=== PATIENT | male | born 1940 | race Caucasian/White ===

== ENCOUNTER → 2017-01-11 | Outpatient (CLI) | payer MEDICARE ==
--- NOTE | 2017-01-11 10:41 | CR ---
EXAMINATION: Two-view chest (PA and Lateral views). HISTORY: Bronchitis. Comparison: 02/14/2013. FINDINGS: The trachea is midline. The cardiomediastinal silhouette is within normal limits. No pulmonary infil trates, effusions or pneumothorax. Tiny metallic density projects over the left chest. Osseous structures appear unremarkable. IMPRESSION: No acute cardiopulmonary process.
== END ==
LOC: MW.CHIM 09:41
PROVIDERS: ATTEND Internal Medicine
DX: J20.9 Acute bronchitis, unspecified (principal)
CPT/HCPCS: 36415; 71020; 85025; G0463

== ENCOUNTER 2017-01-26 09:20 | Emergency (ER) | payer MEDICARE ==
[2017-01-26] MEDS ORDERED: Sodium Chloride 0.9% 10 ML Syringe FLUSH PRN (09:25)
[2017-01-26] MEDS ORDERED: Sodium Chloride 0.9% 2.5 ML Syringe FLUSH PRN (09:25)
[2017-01-26] MEDS ORDERED: Nitroglycerin 0.4 MG Tab.SL SL PRN (09:27)
[2017-01-26] MEDS ORDERED: Aspirin 81 MG Tab.Chew PO ONE (09:27)
[2017-01-26 10:09] LABS: CHLORIDE,CL 104 mmol/L (98-110); SODIUM,NA 137 mmol/L (136-146)
--- NOTE | 2017-01-26 10:26 | EDM.PDOC ---
ED HISTORY OF PRESENT ILLNESS - General Chief Complaint: Chest Pain Stated Complaint: CHEST PAIN Time Seen by Provider: 01/26/17 09:23 Source of Information: Reports: Patient History Limitations: Reports: No limitations - History of Present Illness INITIAL COMMENTS - FREE TEXT/NARRATIVE: History of present illness: [] Patient's head 2-3 days of right-sided chest pain. He states that the area of the pain is widening crosses chest. The pain worsens when he moves his arm or takes a deep breath. He denies any trauma. He has had a cough since Thanksgiving has been treated with several courses of antibiotics without relief. Patient denies any syncope, dizziness, sweating, lightheadedness or numbness or tingling. Review of systems: As per history of present illness and below otherwise all systems reviewed and negative. Past medical history: As per history of present illness and as reviewed below otherwise noncontributory. Surgical history: As per history of present illness and as reviewed below otherwise noncontributory. Social history: No reported history of drug or alcohol abuse. Family history: As per history of present illness and as reviewed below otherwise noncontributory. Physical exam: General: Well developed, well nourished in NAD HEENT: Atraumatic, normocephalic, pupils reactive, negative for conjunctival pallor or scleral icterus, mucous membranes moist, throat clear, neck supple, nontender, trachea midline. Lungs: Clear to auscultation, breath sounds equal bilaterally, chest tender to palpation in the right chest that is reproducible to his chest pain he presented with. There is no skin changes. No rhonchi rales or wheezing Heart: S1S2, regular, negative for clicks, rubs, or JVD. Abdomen: Soft, nondistended, nontender. Negative for masses or hepatosplenomegaly. Negative for costovertebral tenderness. Pelvis: Stable nontender. Genitourinary: Deferred. Rectal: Deferred. Extremities: Atraumatic, negative for cords or calf pain. Neurovascular unremarkable. Neuro: Awake, alert, oriented. Cranial nerves II through XII unremarkable. Cerebellum unremarkable. Motor and sensory unremarkable throughout. Exam nonfocal. Diagnostics: [] EKG shows no acute ischemia, chest x-ray is negative, labs are normal including troponin and BNP Therapeutics: [] Patient was given aspirin here Impression: [] Chest wall pain Plan: [] Tylenol for pain continue regular medicines follow up with PMD return if symptoms worsen Definitive disposition and diagnosis as appropriate pending reevaluation and review of above. - Related Data Allergies/ADRs: Allergies Allergy/AdvReac Type Severity Reaction Status Date / Time No Known Allergies Allergy Verified 01/26/17 09:35 Home Meds: Home Meds Bilberry Fruit Extract [Bilberry] 0 mg PO DAILY 10/31/14 [History] Insulin Lispro [HumaLOG] 0 10/31/14 [History] Multivitamin [Multivitamins] 1 tab PO DAILY 10/31/14 [History] Gluc 2KCl/Chondr/Monica Hy/Hy Ac [Glucosamine & Chondroitin Cap] 1 each PO DAILY 02/03/16 [History] Past Medical History HEENT History: Reports: Impaired vision, Macular degeneration Cardiovascular History: Reports: SOB on exertion Respiratory History: Reports: Asthma, COPD, SOB Gastrointestinal History: Reports: None Endocrine/Metabolic History: Reports: Diabetes, type II - Infectious Disease History Infectious Disease History: Reports: Chicken pox, Measles, Mumps - Past Surgical History HEENT Surgical History: Reports: Tonsillectomy Respiratory Surgical History: Reports: None GI Surgical History: Reports: Hernia repair/other Social & Family History - Family History Family Medical History: Unobtainable - Tobacco Use Smoking Status *Q: Never Smoker Second Hand Smoke Exposure: No - Caffeine Use Caffeine Use: Reports: Soda Caffeine Use Comment: 3-4 pops/day - Alcohol Use Days Per Week of Alcohol Use: 0 - Recreational Drug Use Recreational Drug Use: No ED ROS GENERAL - Review of Systems Review Of Systems: See Below (See history of present illness) ED EXAM, GENERAL - Physical Exam Exam: See Below (See history of present illness) Course - Vital Signs Last Recorded V/S: Last Vital Signs Temp 36.8 C 01/26/17 09:37 Pulse 64 01/26/17 09:37 Resp 18 01/26/17 09:37 BP 129/85 01/26/17 09:37 Pulse Ox 95 01/26/17 09:37 - Orders/Labs/Meds Orders: Active Orders 24 hr Category Date Time Status Chest 1V Frontal [CR] Stat Exams 01/26/17 09:25 Taken Sodium Chloride 0.9% [Saline Flush] Med 01/26/17 09:25 Active 10 ml FLUSH ASDIRECTED PRN Sodium Chloride 0.9% [Saline Flush] Med 01/26/17 09:25 Active 2.5 ml FLUSH ASDIRECTED PRN Peripheral IV Insertion Adult [OM.PC] Stat Oth 01/26/17 09:26 Ordered Medication Orders Sodium Chloride (Saline Flush) 10 ml FLUSH ASDIRECTED PRN PRN Reason: Keep Vein Open Sodium Chloride (Saline Flush) 2.5 ml FLUSH ASDIRECTED PRN PRN Reason: Keep Vein Open Labs: Laboratory Tests 01/26/17 01/26/17 01/26/17 Range/Units 09:41 09:41 09:41 WBC 5.36 (4.0-11.0) K/uL RBC 4.57 (4.50-5.90) M/uL Hgb 14.3 (13.0-17.0) g/dL Hct 42.8 (38.0-50.0) % MCV 93.7 (80.0-98.0) fL MCH 31.3 (27.0-32.0) pg MCHC 33.4 (31.0-37.0) g/dL RDW Std Deviation 44.0 (28.0-62.0) fl RDW Coeff of Isaac 13 (11.0-15.0) % Plt Count 160 (150-400) K/uL MPV 10.40 (7.40-12.00) fL Neut % (Auto) 64.5 (48.0-80.0) % Lymph % (Auto) 23.1 (16.0-40.0) % [place] % (Auto) 10.3 (0.0-15.0) % Eos % (Auto) 1.9 (0.0-7.0) % Baso % (Auto) 0.2 (0.0-1.5) % Neut # 3.5 (1.4-5.7) K/uL Lymph # 1.2 (0.6-2.4) K/uL [place] # 0.6 (0.0-0.8) K/uL Eos # 0.1 (0.0-0.7) K/uL Baso # 0.0 (0.0-0.1) K/uL Nucleated RBC % 0.0 /100WBC Nucleated RBCs # 0 K/uL Sodium 137 (136-146) mmol/L Potassium 4.7 (3.5-5.1) mmol/L Chloride 104 (98-110) mmol/L Carbon Dioxide 25 (21-31) mmol/L BUN 19 (6.0-23.0) mg/dL Creatinine 1.2 (0.6-1.5) mg/dL Est Cr Clr Drug Dosing TNP Estimated GFR (MDRD) 59.2 ml/min Glucose 258 H (60-110) mg/dL Calcium 9.2 (8.8-10.8) mg/dL Total Bilirubin 0.9 (0.1-1.5) mg/dL AST 19 (5-40) IU/L ALT 19 (8-54) IU/L Alkaline Phosphatase 95 (40-150) Troponin I < 0.10 (0.0-0.29) NG/ML B-Natriuretic Peptide (<100) PG/ML Total Protein 6.9 (6.0-8.0) g/dL Albumin 3.8 (3.4-4.8) g/dL Globulin 3.1 (2.0-3.5) g/dL Albumin/Globulin Ratio 1.2 L (1.3-2.8) 01/26/17 Range/Units 09:41 WBC (4.0-11.0) K/uL RBC (4.50-5.90) M/uL Hgb (13.0-17.0) g/dL Hct (38.0-50.0) % MCV (80.0-98.0) fL MCH (27.0-32.0) pg MCHC (31.0-37.0) g/dL RDW Std Deviation (28.0-62.0) fl RDW Coeff of Isaac (11.0-15.0) % Plt Count (150-400) K/uL MPV (7.40-12.00) fL Neut % (Auto) (48.0-80.0) % Lymph % (Auto) (16.0-40.0) % [place] % (Auto) (0.0-15.0) % Eos % (Auto) (0.0-7.0) % Baso % (Auto) (0.0-1.5) % Neut # (1.4-5.7) K/uL Lymph # (0.6-2.4) K/uL [place] # (0.0-0.8) K/uL Eos # (0.0-0.7) K/uL Baso # (0.0-0.1) K/uL Nucleated RBC % /100WBC Nucleated RBCs # K/uL Sodium (136-146) mmol/L Potassium (3.5-5.1) mmol/L Chloride (98-110) mmol/L Carbon Dioxide (21-31) mmol/L BUN (6.0-23.0) mg/dL Creatinine (0.6-1.5) mg/dL Est Cr Clr Drug Dosing Estimated GFR (MDRD) ml/min Glucose (60-110) mg/dL Calcium (8.8-10.8) mg/dL Total Bilirubin (0.1-1.5) mg/dL AST (5-40) IU/L ALT (8-54) IU/L Alkaline Phosphatase (40-150) Troponin I (0.0-0.29) NG/ML B-Natriuretic Peptide 83 (<100) PG/ML Total Protein (6.0-8.0) g/dL Albumin (3.4-4.8) g/dL Globulin (2.0-3.5) g/dL Albumin/Globulin Ratio (1.3-2.8) Meds: Medications Generic Name Dose Route Start Last Admin Trade Name Freq PRN Reason Stop Dose Admin Sodium Chloride 10 ml 01/26/17 09:25 Saline Flush FLUSH ASDIRECTED PRN Keep Vein Open Sodium Chloride 2.5 ml 01/26/17 09:25 Saline Flush FLUSH ASDIRECTED PRN Keep Vein Open Discontinued Medications Generic Name Dose Route Start Last Admin Trade Name Freq PRN Reason Stop Dose Admin Aspirin 324 mg 01/26/17 09:27 01/26/17 09:37 Aspirin PO 01/26/17 09:28 324 mg ONETIME ONE Administration Departure - Departure Time of Disposition: 10:21 Disposition: Home, Self-Care 01 Condition: good Clinical Impression: Chest wall pain Forms: ED Department Discharge Additional Instructions: The following information is given to patients seen in the emergency department who are being discharged to home. This information is to outline your options for follow-up care. We provide all patients seen in our emergency department with a follow-up referral. The need for follow-up, as well as the timing and circumstances, are variable depending upon the specifics of your emergency department visit. If you don't have a primary care physician on staff, we will provide you with a referral. We always advise you to contact your personal physician following an emergency department visit to inform them of the circumstance of the visit and for follow-up with them and/or the need for any referrals to a consulting specialist. The emergency department will also refer you to a specialist when appropriate. This referral assures that you have the opportunity for follow-up care with a specialist. All of these measure are taken in an effort to provide you with optimal care, which includes your follow-up. Under all circumstances we always encourage you to contact your private physician who remains a resource for coordinating your care. When calling for follow-up care, please make the office aware that this follow-up is from your recent emergency room visit. If for any reason you are refused follow-up, please contact the [facility] at and asked to speak to the emergency department charge nurse. [facility] [address] [place] [address] - My Orders Last 24 Hours: My Active Orders 01/26/17 09:25 Chest 1V Frontal [CR] Stat Sodium Chloride 0.9% [Saline Flush] 10 ml FLUSH ASDIRECTED PRN Sodium Chloride 0.9% [Saline Flush] 2.5 ml FLUSH ASDIRECTED PRN 01/26/17 09:26 Peripheral IV Insertion Adult [OM.PC] Stat - Assessment/Plan Last 24 Hours: My Active Orders 01/26/17 09:25 Chest 1V Frontal [CR] Stat Sodium Chloride 0.9% [Saline Flush] 10 ml FLUSH ASDIRECTED PRN Sodium Chloride 0.9% [Saline Flush] 2.5 ml FLUSH ASDIRECTED PRN 01/26/17 09:26 Peripheral IV Insertion Adult [OM.PC] Stat
[2017-01-26 10:53] VITALS: BP 121/79
--- NOTE | 2017-01-28 20:06 | CR ---
EXAM DATE: 01/26/17 PATIENT'S AGE: 76 Patient: INDIAR THOMAS Facility: [place], [place] Site . Site : [id number] Study: XRay Chest [id number]/11/2017 9:41:05 AM Ordering Physician: Nasir Lorenzana Final Report: INDICATION: Chest pain and shortness of breath. TECHNIQUE: Chest 1 views. COMPARISON: 01/11/2017. FINDINGS: Cardiovascular and mediastinum: Heart size and vasculature are normal in caliber and appearance. Mediastinum is within normal limits. Lungs and pleural spaces: Lungs are clear. No sign of infiltrate or mass. No sign of pleural effusion. No pneumothorax. Bones and soft tissues: No significant findings. IMPRESSION: No acute findings and no significant changes from the prior exam. Dictated by Mane Mendoza MD @ 01/26/2017 10:00:48 AM Dictated by: Mane Mendoza MD @ 01/26/2017 10:00:51 (Electronic Signature) Report Signed by Proxy and Original Signed Document filed in the Medical Record. [facility]
== END 2017-01-26 10:51 | disposition home or self-care (01) ==
LOC: MW.ED 09:20
DX: R07.89 Other chest pain (principal); J45.909 Unspecified asthma, uncomplicated; J44.9 Chronic obstructive pulmonary disease, unspecified; E11.9 Type 2 diabetes mellitus without complications; Z79.4 Long term (current) use of insulin; Z79.899 Other long term (current) drug therapy; Z98.890 Other specified postprocedural states
CPT/HCPCS: 36415; 71010; 80053; 83880; 84484; 85025; 93005; 99284; A9270

== ENCOUNTER 2017-02-02 12:08 | Emergency (ER) | payer MEDICARE ==
[2017-02-02 12:17] VITALS: BP 137/76
[2017-02-02] MEDS ORDERED: Lidocaine 1% 20 ML MDV INJECT ONE (12:18)
[2017-02-02] MEDS ORDERED: Bacitracin Oint 1 GM U/D Packet TOP ONE (12:18)
--- NOTE | 2017-02-02 12:48 | EDM.PDOC ---
Addendum entered and electronically signed by Aleksandra Stanford NP 03/05/17 12: 56: After adequate skin decontamination with chlorhexidine scrub and anesthesia with a digital block the distal nail which was loose was sutured to the distal tip with one 4-0 suture. The nail was trephinated with cautery. Original Note: ED HPI Skin/Rash - General Chief Complaint: Laceration Stated Complaint: CUT THUMB Time Seen by Provider: 02/02/17 12:10 Source: Reports: Patient History Limitations: Reports: No limitations - History of Present Illness INITIAL COMMENTS - FREE TEXT/NARRATIVE: Presents reporting that he was working with a skill saw and a piece of both her came back and hit his right thumb. Now he has a laceration and part of the nail chipped off. - Related Data Allergies Allergy/AdvReac Type Severity Reaction Status Date / Time Latex, Natural Rubber Allergy Other Verified 02/02/17 12:25 Home Meds: Ambulatory Orders Medication Instructions Recorded Confirmed Bilberry Fruit Extract [Bilberry] 0 mg PO DAILY 10/31/14 09/08/16 Insulin Lispro [HumaLOG] 0 10/31/14 05/31/15 Multivitamin [Multivitamins] 1 tab PO DAILY 10/31/14 09/08/16 Gluc 2KCl/Chondr/Monica Hy/Hy Ac 1 each PO DAILY 02/03/16 [Glucosamine & Chondroitin Cap] Past Medical History HEENT History: Reports: Impaired vision, Macular degeneration Cardiovascular History: Reports: SOB on exertion Respiratory History: Reports: Asthma, COPD, SOB Gastrointestinal History: Reports: None Genitourinary History: Reports: None Musculoskeletal History: Reports: None Neurological History: Reports: None Psychiatric History: Reports: None Endocrine/Metabolic History: Reports: Diabetes, type II Hematologic History: Reports: None Immunologic History: Reports: None Other Oncologic History: skin ca Dermatologic History: Reports: None - Infectious Disease History Infectious Disease History: Reports: None - Past Surgical History HEENT Surgical History: Reports: Tonsillectomy Respiratory Surgical History: Reports: None GI Surgical History: Reports: Hernia repair/other Social & Family History - Family History Family Medical History: Unobtainable - Tobacco Use Smoking Status *Q: Never Smoker Second Hand Smoke Exposure: No - Caffeine Use Caffeine Use: Reports: Soda Caffeine Use Comment: 3-4 pops/day - Alcohol Use Days Per Week of Alcohol Use: 0 - Recreational Drug Use Recreational Drug Use: No ED ROS GENERAL - Review of Systems Review Of Systems: ROS reveals no pertinent complaints other than HPI. ED EXAM, SKIN/RASH Exam: See Below Exam Limited By: No limitations General Appearance: alert, no apparent distress Ears: normal external exam Nose: normal inspection Throat/Mouth: Normal inspection Head: atraumatic, normocephalic Neck: normal inspection Respiratory/Chest: no respiratory distress Cardiovascular: normal peripheral pulses GI/Abdominal: soft Extremities: other (Left thumb one and one half centimeter laceration from the nailbed obliquely to the lateral without disturbance of the nailbed. CMS intact distally. Chip off the distal nail medially.) Neurological: alert, oriented Psychiatric: normal affect, normal mood Skin: Warm, Dry, Intact, Normal color, No rash Lymphatic: no adenopathy Course - Vital Signs Last Recorded V/S: Last Vital Signs Temp 36.4 C 02/02/17 12:15 Pulse 66 02/02/17 12:15 Resp 16 02/02/17 12:15 BP 137/76 02/02/17 12:15 Pulse Ox 97 02/02/17 12:15 - Orders/Labs/Meds Meds: Medications Discontinued Medications Generic Name Dose Route Start Last Admin Trade Name Freq PRN Reason Stop Dose Admin Bacitracin 1 dose 02/02/17 12:18 Bacitracin Oint 1 Gm TOP 02/02/17 12:19 ONETIME ONE Lidocaine HCl 20 ml 02/02/17 12:18 Xylocaine 1% INJECT 02/02/17 12:19 ONETIME ONE Departure - Departure Time of Disposition: 12:48 Disposition: Home, Self-Care 01 Condition: good Clinical Impression: Laceration Forms: ED Department Discharge Additional Instructions: 1. Keep laceration clean and dry. 2. Apply anti-bacterial ointment twice daily for next three days 3. Keep covered while working 4. Watch for signs of infection: redness, swelling, purulent drainage 5. Suture removal 7-10 days here, urgent care or your doctor's office
== END 2017-02-02 13:00 | disposition home or self-care (01) ==
LOC: MW.ED 12:08
DX: S61.112A Laceration without foreign body of left thumb with damage to nail, initial encounter (principal); E11.9 Type 2 diabetes mellitus without complications; Z79.4 Long term (current) use of insulin; Z79.899 Other long term (current) drug therapy; Z98.890 Other specified postprocedural states; Z91.040 Latex allergy status; W45.8XXA Other foreign body or object entering through skin, initial encounter
CPT/HCPCS: 11760; 99282

== ENCOUNTER 2017-02-10 08:53 | Emergency (ER) | payer MEDICARE ==
[2017-02-10 08:59] VITALS: BP 140/70
== END 2017-02-10 09:05 | disposition home or self-care (01) ==
LOC: MW.ED 08:53
DX: S61.012D Laceration without foreign body of left thumb without damage to nail, subsequent encounter (principal); X58.XXXD Exposure to other specified factors, subsequent encounter

== ENCOUNTER → 2017-02-18 | Outpatient (CLI) | payer MEDICARE | LOC: MW.CHIM 07:37 | PROVIDERS: ATTEND Internal Medicine | DX: E11.65 Type 2 diabetes mellitus with hyperglycemia (principal) | CPT/HCPCS: 36415; 83036 ==

== ENCOUNTER → 2017-02-19 | Outpatient (CLI) | payer MEDICARE | LOC: MW.CHIM 10:00 | PROVIDERS: ATTEND Internal Medicine | DX: Z09 Encounter for follow-up examination after completed treatment for conditions other than malignant neoplasm (principal) | CPT/HCPCS: G0463 ==

== ENCOUNTER → 2017-03-07 | Outpatient (CLI) | payer MEDICARE | LOC: MW.CHIM 08:00 | PROVIDERS: ATTEND Internal Medicine | DX: NODX10 (principal) ==

== ENCOUNTER → 2017-03-08 | Outpatient (CLI) | payer MEDICARE | LOC: MW.CHFP 08:00 | PROVIDERS: ATTEND Emergency Medicine | DX: NODX10 (principal) ==

== ENCOUNTER → 2017-03-11 | Outpatient (CLI) | payer MEDICARE | LOC: MW.CHFP 08:00 | PROVIDERS: ATTEND Emergency Medicine | DX: NODX10 (principal) ==

== ENCOUNTER → 2017-03-15 | Outpatient (CLI) | payer MEDICARE | LOC: MW.CHPOD 08:00 | PROVIDERS: ATTEND Podiatrist Foot & Ankle Surgery | DX: M79.673 Pain in unspecified foot (principal); E11.65 Type 2 diabetes mellitus with hyperglycemia; R26.9 Unspecified abnormalities of gait and mobility; M21.969 Unspecified acquired deformity of unspecified lower leg | CPT/HCPCS: 99204 ==

== ENCOUNTER → 2017-03-18 | Outpatient (CLI) | payer MEDICARE | LOC: MW.CHIM 08:00 | PROVIDERS: ATTEND Internal Medicine | DX: NODX10 (principal) ==

== ENCOUNTER → 2017-04-08 | Outpatient (CLI) | payer MEDICARE | LOC: MW.CHFP 08:00 | PROVIDERS: ATTEND Emergency Medicine | DX: NODX10 (principal) ==

== ENCOUNTER → 2017-04-12 | Outpatient (CLI) | payer MEDICARE | LOC: MW.CHPOD 08:00 | PROVIDERS: ATTEND Podiatrist Foot & Ankle Surgery | DX: R26.9 Unspecified abnormalities of gait and mobility (principal); M21.969 Unspecified acquired deformity of unspecified lower leg; M21.40 Flat foot [pes planus] (acquired), unspecified foot; E11.65 Type 2 diabetes mellitus with hyperglycemia | CPT/HCPCS: G0463 ==

== ENCOUNTER 2017-06-14 07:34 | Emergency (ER) | payer MEDICARE ==
[2017-06-14] MEDS ORDERED: Lidocaine 1% 20 ML MDV INJECT ONE (07:55)
[2017-06-14] MEDS ORDERED: Diphtheria,Pertussis(Acell),Tetanus Vaccine 0.5 ML Syringe IM ONE (08:01)
[2017-06-14] MEDS ORDERED: Bacitracin Oint 1 GM U/D Packet TOP ONE (08:02)
--- NOTE | 2017-06-14 08:23 | EDM.PDOC ---
ED HPI GENERAL MEDICAL PROBLEM - General Chief Complaint: Laceration Stated Complaint: CUT LEFT FINGER Time Seen by Provider: 06/14/17 08:11 Source of Information: Reports: Patient History Limitations: Reports: No Limitations - History of Present Illness INITIAL COMMENTS - FREE TEXT/NARRATIVE: HISTORY AND PHYSICAL: History of present illness: Review of systems: As per history of present illness and below otherwise all systems reviewed and negative. Past medical history: As per history of present illness and as reviewed below otherwise noncontributory. Surgical history: As per history of present illness and as reviewed below otherwise noncontributory. Social history: No reported history of drug or alcohol abuse. Family history: As per history of present illness and as reviewed below otherwise noncontributory. Physical exam: HEENT: Normocephalic, atraumatic, pupils normal and symmetrical, supple neck, no meningismus, normal color Lungs: Normal and symmetrical chest wall excursion bilateral with no tachypnea or increased work of breathing, grossly normal chest exam Heart: No tachycardia in triage Abdomen: Normal-appearing, nondistended, no visible mass or asymmetry Pelvis: Normal-appearing Genitourinary: Deferred Rectal exam: Deferred Extremities: 2.75 cm avulsion tip of left long finger palmar aspect without significant nail involvement on the dorsum. Avulsion is 1/8 inch wide that is the width of the saw blade. Margins devitalized with hanging skin. No bony involvement. Normal painless range of motion of the finger with normal strength in flexion and extension. Neurovascularly intact distally with good cap refill. normal use and range of motion, no visible evidence of gross neurovascular compromise Neuro: Awake, alert, oriented. Normal and appropriate mental status. Cranial nerves grossly unremarkable. Motor function normal. Nonfocal neurologic exam. Diagnostics: [] Therapeutics: [Tetanus given] Impression: [Avulsion left long finger] Plan: [Procedure debridement of wound by DOMINIC Breen Patient sitting. Suture removal scissors used to trim devitalized margins of wound. Patient tolerated well. No complications. Wound then irrigated extensively with a volume tap water irrigation prior to dressing application] Definitive disposition and diagnosis as appropriate pending reevaluation and review of above. left middle finger Pain Score (Numeric/FACES): 3 - Related Data Allergies Allergy/AdvReac Type Severity Reaction Status Date / Time Latex, Natural Rubber Allergy Other Verified 06/14/17 07:49 Home Meds: Home Meds Bilberry Fruit Extract [Bilberry] 0 mg PO DAILY 10/31/14 [History] Insulin Lispro [HumaLOG] 1 injection SQ ASDIRECTED 10/31/14 [History] Multivitamin [Multivitamins] 1 tab PO DAILY 10/31/14 [History] Gluc 2KCl/Chondr/Monica Hy/Hy Ac [Glucosamine & Chondroitin Cap] 1 each PO DAILY 02/03/16 [History] Past Medical History HEENT History: Reports: Impaired Vision, Macular Degeneration Cardiovascular History: Reports: SOB on Exertion Respiratory History: Reports: Asthma, COPD, SOB Gastrointestinal History: Reports: None Genitourinary History: Reports: None Musculoskeletal History: Reports: None Neurological History: Reports: None Psychiatric History: Reports: None Endocrine/Metabolic History: Reports: Diabetes, Type II Hematologic History: Reports: None Immunologic History: Reports: None Other Oncologic History: skin ca Dermatologic History: Reports: None - Infectious Disease History Infectious Disease History: Reports: None - Past Surgical History Respiratory Surgical History: Reports: None GI Surgical History: Reports: Hernia Repair/Other Social & Family History - Family History Family Medical History: Noncontributory - Tobacco Use Smoking Status *Q: Never Smoker Second Hand Smoke Exposure: No - Caffeine Use Caffeine Use: Reports: Soda Caffeine Use Comment: 3-4 pops/day - Alcohol Use Days Per Week of Alcohol Use: 0 - Recreational Drug Use Recreational Drug Use: No ED ROS GENERAL - Review of Systems Review Of Systems: See Below (History of present illness) ED EXAM, SKIN/RASH Exam: See Below (History of present illness) Course - Vital Signs Last Recorded V/S: Last Vital Signs Temp 36.1 C 06/14/17 07:50 Pulse 65 06/14/17 07:50 Resp 16 06/14/17 07:50 BP 128/72 06/14/17 07:50 Pulse Ox 95 06/14/17 07:50 - Orders/Labs/Meds Orders: Active Orders 24 hr Category Date Time Status Vaccines to be Administered [RC] PER UNIT ROUTINE Care 06/14/17 08:01 Active Meds: Medications Discontinued Medications Generic Name Dose Route Start Last Admin Trade Name Freq PRN Reason Stop Dose Admin Bacitracin 1 dose 06/14/17 08:02 06/14/17 08:22 Bacitracin Oint 1 Gm TOP 06/14/17 08:03 1 dose ONETIME ONE Administration Diphtheria/Tetanus/Acell Pertussis 0.5 ml 06/14/17 08:01 06/14/17 08:15 Adacel IM 06/14/17 08:02 0.5 ml .ONCE ONE Administration Lidocaine HCl 20 ml 06/14/17 07:55 Xylocaine 1% INJECT 06/14/17 07:56 ONETIME ONE Departure - Departure Time of Disposition: 08:24 Disposition: Home, Self-Care 01 Condition: Good Clinical Impression: Avulsion of skin of finger, Tetanus-diphtheria vaccination administered at current visit - Discharge Information Instructions: Laceration Care, Adult, [id number] Referrals: Kermit Whipple MD [Primary Care Provider] - Forms: ED Department Discharge Additional Instructions: You have suffered an avulsion today. This means that some of your tissue is missing from the saw blade wound. It does not require suture repair and will heal by itself. We've had you irrigate your wound extensively to wash out any dirt. Keep dressing in place with antibiotic ointment and wear cage splint to protect her finger temp from bumping against something as this might be quite painful. Take 800 mg of Motrin every 6 hours and Tylenol every 4 hours as needed for pain. If you find that your fingertip is throbbing it may be helpful to elevated above your heart and apply an ice pack. Follow-up with your doctor in 2 days for wound check and return immediately for signs of infection or other concerns. Her tetanus has been updated today and this includes pertussis or whooping cough coverage. - My Orders Last 24 Hours: My Active Orders 06/14/17 08:01 Vaccines to be Administered [RC] PER UNIT ROUTINE - Assessment/Plan Last 24 Hours: My Active Orders 06/14/17 08:01 Vaccines to be Administered [RC] PER UNIT ROUTINE
[2017-06-14 08:43] VITALS: BP 130/73
== END 2017-06-14 08:40 | disposition home or self-care (01) ==
LOC: MW.ED 07:34
DX: S61.203A Unspecified open wound of left middle finger without damage to nail, initial encounter (principal); Z23 Encounter for immunization; J45.909 Unspecified asthma, uncomplicated; J44.9 Chronic obstructive pulmonary disease, unspecified; E11.9 Type 2 diabetes mellitus without complications; Z85.828 Personal history of other malignant neoplasm of skin; Z79.4 Long term (current) use of insulin; Z79.899 Other long term (current) drug therapy; Z91.040 Latex allergy status; W29.8XXA Contact with other powered hand tools and household machinery, initial encounter
CPT/HCPCS: 90471; 90715; 99283; 99283-25

== ENCOUNTER 2018-02-08 20:56 | Emergency (ER) | payer MEDICARE ==
--- NOTE | 2018-02-08 21:04 | EDM.PDOC ---
ED HPI GENERAL MEDICAL PROBLEM - General Stated Complaint: LOWER BACK PAIN Time Seen by Provider: 02/08/18 21:04 Source of Information: Reports: Patient History Limitations: Reports: No Limitations - History of Present Illness INITIAL COMMENTS - FREE TEXT/NARRATIVE: HISTORY AND PHYSICAL: []77-year-old gentleman presenting with mid back pain History of Present Illness: []Patient was snowblowing the snow off his driveway . He slipped on the ice landed in a position mid back striking the cement Review of Systems: As per history of present illness and below otherwise all systems reviewed and negative. Past medical history: As per history of present illness and as reviewed below otherwise noncontributory. Surgical history: As per history of present illness and as reviewed below otherwise noncontributory. Social history: No reported history of drug or alcohol abuse. Family history: As per history of present illness and as reviewed below otherwise noncontributory. Physical exam: Certain oriented male denies any loss of consciousness denies hitting his head area of pain is his mid back. He is answering questions in full sentences without any shortness of breath. Skin is warm and dry. HEENT: Atraumatic, normocehpalic, pupils reactive, negative for conjunctival pallor or scleral icterus, mucous membranes moist, throat clear, neck supple, nontender, trachea midline. PERRLA. Lungs: Clear to auscultation, breath sounds equal bilaterally, chest non tender. Heart: S1S2, regular, negative for clicks, rubs, or JVD. Abdomen: Soft, nondistended, nontender. Negative for masses or hepatossplenmegaly. Negative for costovertebral tenderness. Pelvis: Stable nontender. Genitourinary: Deferred. Rectal: Deferred Extremities: Atraumatic, negative for cords or calf pain. Neurovascular unremarkable. Neuro: Awake, alert, oriented. Cranial nerves II through XII unremarkable. Cerebellum unremarkable. Motor and sensory unremarkable throughout. Exam nonfocal. His chest with the patient that no dislocations or fractures were noted on x-ray He does relate improvement after the Toradol Diagnostics: []Thoracic spine x-ray Therapeutics: []Toradol IM Norflex are IM Impression: []Mid back injury Plan: []Discharged to home Follow up with your primary care next week Return to the emergency room as needed as discussed Definitive disposition and diagnosis as appropriate pending reevaluation and review of above. Onset: Today, Sudden Duration: Hour(s):, Getting Worse Location: Reports: Back Quality: Reports: Throbbing Severity: Moderate Improves with: Reports: None Worsens with: Reports: None Associated Symptoms: Reports: No Other Symptoms lower back Pain Score (Numeric/FACES): 6 - Related Data Allergies Allergy/AdvReac Type Severity Reaction Status Date / Time Latex, Natural Rubber Allergy Other Verified 02/08/18 21:09 cory Allergy Blisters Uncoded 02/08/18 21:10 Home Meds: Home Meds Bilberry Fruit Extract [Bilberry] 0 mg PO DAILY 10/31/14 [History] Insulin Lispro [HumaLOG] 1 injection SQ ASDIRECTED 10/31/14 [History] Multivitamin [Multivitamins] 1 tab PO DAILY 10/31/14 [History] Gluc 2KCl/Chondr/Monica Hy/Hy Ac [Glucosamine & Chondroitin Cap] 1 each PO DAILY 02/03/16 [History] Past Medical History HEENT History: Reports: Impaired Vision, Macular Degeneration Cardiovascular History: Reports: SOB on Exertion Respiratory History: Reports: Asthma, COPD, SOB Gastrointestinal History: Reports: None Genitourinary History: Reports: None Musculoskeletal History: Reports: None Neurological History: Reports: None Psychiatric History: Reports: None Endocrine/Metabolic History: Reports: Diabetes, Type II Hematologic History: Reports: None Immunologic History: Reports: None Other Oncologic History: skin ca Dermatologic History: Reports: None - Infectious Disease History Infectious Disease History: Reports: None - Past Surgical History Respiratory Surgical History: Reports: None GI Surgical History: Reports: Hernia Repair/Other Social & Family History - Family History Family Medical History: Noncontributory - Tobacco Use Smoking Status *Q: Never Smoker Second Hand Smoke Exposure: No - Caffeine Use Caffeine Use: Reports: Soda Caffeine Use Comment: 3-4 pops/day - Alcohol Use Days Per Week of Alcohol Use: 0 - Recreational Drug Use Recreational Drug Use: No ED ROS GENERAL - Review of Systems Review Of Systems: ROS reveals no pertinent complaints other than HPI. ED EXAM, GENERAL - Physical Exam Exam: See Below (see dictation) Course - Vital Signs Last Recorded V/S: Last Vital Signs Temp 36.4 C 02/08/18 21:05 Pulse 75 02/08/18 21:05 Resp 22 H 02/08/18 21:05 BP 145/78 H 02/08/18 21:05 Pulse Ox 97 02/08/18 21:05 - Orders/Labs/Meds Orders: Active Orders 24 hr Category Date Time Status Thoracic Spine 3V [CR] Stat Exams 02/08/18 21:10 Taken Meds: Medications Discontinued Medications Generic Name Dose Route Start Last Admin Trade Name Sarah PRN Reason Stop Dose Admin Ketorolac Tromethamine 60 mg 02/08/18 21:10 02/08/18 21:20 Toradol IM 02/08/18 21:11 60 mg ONETIME ONE Administration Orphenadrine Citrate 60 mg 02/08/18 21:17 02/08/18 21:22 Norflex IM 02/08/18 21:18 60 mg ONETIME ONE Administration Departure - Departure Time of Disposition: 21:53 Disposition: Home, Self-Care 01 Condition: Good Clinical Impression: Contusion Qualifiers: Encounter type: initial encounter Contusion area: lower back Qualified Code(s) : S30.0XXA - Contusion of lower back and pelvis, initial encounter - Discharge Information Instructions: Contusion, Ufvq-[id number], Back Pain, Adult, [id number] Referrals: Kermit Whipple MD [Primary Care Provider] - Additional Instructions: The following information is given to patients seen in the emergency department who are being discharged to home. This information is to outline your options for follow-up care. We provide all patients seen in our emergency department with a follow-up referral. The need for follow-up, as well as the timing and circumstances, are variable depending upon the specifics of your emergency department visit. If you don't have a primary care physician on staff, we will provide you with a referral. We always advise you to contact your personal physician following an emergency department visit to inform them of the circumstance of the visit and for follow-up with them and/or the need for any referrals to a consulting specialist. The emergency department will also refer you to a specialist when appropriate. This referral assures that you have the opportunity for followup care with a specialist. All of these measure are taken in an effort to provide you with optimal care, which includes your followup. Under all circumstances we always encourage you to contact your private physician who remains a resource for coordinating your care. When calling for followup care, please make the office aware that this follow-up is from your recent emergency room visit. If for any reason you are refused follow-up, please contact the [facility] emergency department at and asked to speak to the emergency department charge nurse. Here found to have a injury to your back/contusion from your fall Prescription has been written for you for Flexeril [id number] ibuprofen as directed and discussed Return to the emergency room as needed as discussed Follow-up with your primary care in 3 days - My Orders Last 24 Hours: My Active Orders 02/08/18 21:10 Thoracic Spine 3V [CR] Stat - Assessment/Plan Last 24 Hours: My Active Orders 02/08/18 21:10 Thoracic Spine 3V [CR] Stat
[2018-02-08] MEDS ORDERED: Ketorolac 60 MG/2 ML SDV IM ONE (21:10)
[2018-02-09 00:24] VITALS: BP 155/71
--- NOTE | 2018-02-10 15:30 | CR ---
EXAM DATE: 02/08/18 PATIENT'S AGE: 77 Patient: INDIRA THOMAS Facility: [place], [place] Site . Site : [id number] Study: XRay Spine Thoracic [id number]/24/2018 9:41:23 PM Ordering Physician: Doctor Rice Final Report: Fell and back after slipping on ice. Thoracic spine x-ray FINDINGS: Mild levoconvex curvature of the thoracic spine. Normal height and alignment of the thoracic vertebral bodies. Minimal degenerative change of the thoracic spine. No acute fracture visualized. Dictated by Jessica Varela MD @ Feb 08 2018 10:21PM (Electronic Signature) Report Signed by Proxy. ERNESTO
== END 2018-02-08 22:14 | disposition home or self-care (01) ==
LOC: MW.ED 20:56
DX: S30.0XXA Contusion of lower back and pelvis, initial encounter (principal); E11.9 Type 2 diabetes mellitus without complications; Z79.4 Long term (current) use of insulin; Z91.040 Latex allergy status; Z91.09 Other allergy status, other than to drugs and biological substances; W00.0XXA Fall on same level due to ice and snow, initial encounter
CPT/HCPCS: 72072; 96372; 99283; J1885; J2360

== ENCOUNTER 2019-05-04 06:29 | Emergency (ER) | payer MEDICARE ==
--- NOTE | 2019-05-04 06:48 | EDM.PDOC ---
<Abelardo Weaver - Last Filed: 05/04/19 06:45> ED HPI GENERAL MEDICAL PROBLEM - General Chief Complaint: Lower Extremity Injury/Pain Stated Complaint: LEFT FOOT PAIN Time Seen by Provider: 05/04/19 06:45 Source of Information: Reports: Patient - History of Present Illness INITIAL COMMENTS - FREE TEXT/NARRATIVE: HISTORY AND PHYSICAL: History of present illness: [Patient presents with left foot pain since Saturday 5 out of 10 unable to bear weight since most outer fell on his foot no radiation does have some swelling slight redness pain with movement/articulation of his ankle joint no fever nausea vomiting chills sweats He was seen Saturday through [facility] with a negative x-ray and also seen by podiatry ] Review of systems: As per history of present illness and below otherwise all systems reviewed and negative. Past medical history: As per history of present illness and as reviewed below otherwise noncontributory. Surgical history: As per history of present illness and as reviewed below otherwise noncontributory. Social history: No reported history of drug or alcohol abuse. Family history: As per history of present illness and as reviewed below otherwise noncontributory. Physical exam: HEENT: Atraumatic, normocephalic, pupils reactive, negative for conjunctival pallor or scleral icterus, mucous membranes moist, throat clear, neck supple, nontender, trachea midline. Lungs: Clear to auscultation, breath sounds equal bilaterally, chest nontender. Heart: S1S2, regular, negative for clicks, rubs, or JVD. Abdomen: Soft, nondistended, nontender. Negative for masses or hepatosplenomegaly. Negative for costovertebral tenderness. Pelvis: Stable nontender. Genitourinary: Deferred. Rectal: Deferred. Extremities: Atraumatic, negative for cords or calf pain. Neurovascular unremarkable. Neuro: Awake, alert, oriented. Cranial nerves II through XII unremarkable. Cerebellum unremarkable. Motor and sensory unremarkable throughout. Exam nonfocal. Diagnostics: [CT left foot CBC uric acid ] Therapeutics: [Lab and imaging to be followed by at sign out] Impression: [Left foot pain/injury] Definitive disposition and diagnosis as appropriate pending reevaluation and review of above. - Related Data Allergies Allergy/AdvReac Type Severity Reaction Status Date / Time Latex, Natural Rubber Allergy Other Verified 05/04/19 06:34 cory Allergy Blisters Uncoded 05/04/19 06:34 Home Meds: Home Meds Bilberry Fruit Extract [Bilberry] 240 mg PO BID 10/31/14 [History] Insulin Lispro [HumaLOG] 0 injection SQ TIDMEALS MDD 60 units 10/31/14 [History] Cetirizine [ZyrTEC] 10 mg PO DAILY 12/16/18 [History] Past Medical History HEENT History: Reports: Cataract, Hard of Hearing, Macular Degeneration, Other ( See Below) Other HEENT History: wears glasses, has injections for Wet Macular Degeneration Cardiovascular History: Reports: High Cholesterol, SOB on Exertion Respiratory History: Reports: Other (See Below) Other Respiratory History: soon to be tested for sleep apnea- he "snores alot" Gastrointestinal History: Reports: Other (See Below) Other Gastrointestinal History: ocassional heartburn from spicy foods Genitourinary History: Reports: BPH Musculoskeletal History: Reports: Arthritis, Back Pain, Chronic, Fracture, Neck Pain, Chronic Other Musculoskeletal History: hx of a fx ankle as a child Neurological History: Reports: None Psychiatric History: Reports: None Endocrine/Metabolic History: Reports: IDDM, Other (See Below) Other Endocrine/Metabolic History: 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 Hematologic History: Reports: None Immunologic History: Reports: None Oncologic (Cancer) History: Reports: Basal Cell Carcinoma Other Oncologic History: basal cell removed from the face and neck Dermatologic History: Reports: None - Infectious Disease History Infectious Disease History: Reports: None Other Infectious Disease History: polio - Past Surgical History Head Surgeries/Procedures: Reports: None HEENT Surgical History: Reports: Cataract Surgery, Tonsillectomy GI Surgical History: Reports: Hernia, Inguinal Male Surgical History: Reports: None, Prostatectomy Dermatological Surgical History: Reports: Skin Biopsy Social & Family History - Family History Family Medical History: Noncontributory - Tobacco Use Smoking Status *Q: Never Smoker - Caffeine Use Caffeine Use: Reports: Soda Caffeine Use Comment: 3-4 pops/day - Recreational Drug Use Recreational Drug Use: No Course - Vital Signs Last Recorded V/S: Last Vital Signs Temp 36.1 C 05/04/19 06:32 Pulse 88 05/04/19 06:32 Resp 18 05/04/19 06:32 BP 142/69 H 05/04/19 06:32 Pulse Ox 94 L 06/17/19 06:32 - Orders/Labs/Meds Labs: Laboratory Tests 05/04/19 05/04/19 Range/Units 06:45 06:45 WBC 8.85 (4.0-11.0) K/uL RBC 4.71 (4.50-5.90) M/uL Hgb 14.9 (13.0-17.0) g/dL Hct 44.1 (38.0-50.0) % MCV 93.6 (80.0-98.0) fL MCH 31.6 (27.0-32.0) pg MCHC 33.8 (31.0-37.0) g/dL RDW Std Deviation 44.4 (28.0-62.0) fl RDW Coeff of Isaac 13 (11.0-15.0) % Plt Count 203 (150-400) K/uL MPV 10.10 (7.40-12.00) fL Neut % (Auto) 73.7 (48.0-80.0) % Lymph % (Auto) 14.5 L (16.0-40.0) % Monroe % (Auto) 10.6 (0.0-15.0) % Eos % (Auto) 1.0 (0.0-7.0) % Baso % (Auto) 0.2 (0.0-1.5) % Neut # (Auto) 6.5 H (1.4-5.7) K/uL Lymph # (Auto) 1.3 (0.6-2.4) K/uL Monroe # (Auto) 0.9 H (0.0-0.8) K/uL Eos # (Auto) 0.1 (0.0-0.7) K/uL Baso # (Auto) 0.0 (0.0-0.1) K/uL Nucleated RBC % 0.0 /100WBC Nucleated RBCs # 0 K/uL Uric Acid 2.8 (2.6-7.2) mg/dL Departure - Departure Disposition: Home, Self-Care 01 Clinical Impression: Ankle injury, Ankle pain - Discharge Information Referrals: Kermit Whipple MD [Primary Care Provider] - Forms: ED Department Discharge Additional Instructions: The following information is given to patients seen in the emergency department who are being discharged to home. This information is to outline your options for follow-up care. We provide all patients seen in our emergency department with a follow-up referral. The need for follow-up, as well as the timing and circumstances, are variable depending upon the specifics of your emergency department visit. If you don't have a primary care physician on staff, we will provide you with a referral. We always advise you to contact your personal physician following an emergency department visit to inform them of the circumstance of the visit and for follow-up with them and/or the need for any referrals to a consulting specialist. The emergency department will also refer you to a specialist when appropriate. This referral assures that you have the opportunity for followup care with a specialist. All of these measure are taken in an effort to provide you with optimal care, which includes your followup. Under all circumstances we always encourage you to contact your private physician who remains a resource for coordinating your care. When calling for followup care, please make the office aware that this follow-up is from your recent emergency room visit. If for any reason you are refused follow-up, please contact the [facility] emergency department at and asked to speak to the emergency department charge nurse. [facility] - Podiatry [address] [place] [address] Fax: [phone] Continue crutches elevation as discussed follow-up podiatry above Motrin/ Tylenol as directed and return as needed as discussed <Anthony Stark - Last Filed: 05/04/19 08:38> ED HPI GENERAL MEDICAL PROBLEM left foot Pain Score (Numeric/FACES): 4 Review of Systems - Review of Systems Review Of Systems: ROS reveals no pertinent complaints other than HPI. ED EXAM, GENERAL - Physical Exam Exam: See Below (See dictation) Course - Vital Signs Text/Narrative:: Patient's emergency department course is unremarkable CT scan does not demonstrate any occult fracture there is some soft tissue swelling noted no other acute findings uric acid was unremarkable as was CBC I discussed with patient the need for follow-up continued elevation and nonweightbearing patient be given podiatry for follow-up Departure - Departure Time of Disposition: 08:36 Condition: Good
--- NOTE | 2019-05-04 07:47 | CT ---
HISTORY: Left foot pain and swelling. Unable to bear weight. TECHNIQUE: Noncontrast CT of the left foot. COMPARISON: No prior. FINDINGS: There is infiltration of subcutaneous tissues of the left foot which may relate to edema and/or cellulitis. No localized fluid collection is seen. There is no acute fracture. Mild degenerative changes of the 1st metatarsophalangeal joint. Degenerative changes of several of the interphalangeal joints of the lesser digits. Degenerative changes within the midfoot and at the midfoot-forefoot junction with subchondral cystic change. Moderate ankle and posterior subtalar joint effusions. Scattered areas of the ligamentous and tendinous calcification. Vascular calcifications. IMPRESSION: 1. Infiltration of the subcutaneous tissues which may relate to edema and/or cellulitis. No definite fluid collection. No soft tissue gas. 2. Moderate ankle and posterior subtalar joint effusions. 3. Degenerative changes within the midfoot and at the midfoot-forefoot junction with subchondral cystic change. 4. No acute fracture. Dictated by Olman Yang MD @ 05/04/2019 7:44:40 AM Please note that all CT scans at this facility use dose modulation, iterative reconstruction, and/or weight-based dosing when appropriate to reduce radiation dose to as low as reasonably achievable. Dictated by: Olman Yang MD @ 05/04/2019 07:44:46 (Electronically Signed)
[2019-05-04 08:46] VITALS: BP 145/83
== END 2019-05-04 08:46 | disposition home or self-care (01) ==
LOC: MW.ED 06:29
DX: S99.912A Unspecified injury of left ankle, initial encounter (principal); E11.9 Type 2 diabetes mellitus without complications; E13.9 Other specified diabetes mellitus without complications; E78.00 Pure hypercholesterolemia, unspecified; Z79.4 Long term (current) use of insulin; Z91.040 Latex allergy status; Z91.09 Other allergy status, other than to drugs and biological substances; W19.XXXA Unspecified fall, initial encounter
CPT/HCPCS: 36415; 73700-26-LT; 73700-LT; 84550; 85025; 99283-25

== ENCOUNTER 2019-10-06 00:56 | Emergency (ER) | payer MEDICARE ==
--- NOTE | 2019-10-06 01:31 | EDM.PDOC ---
ED HPI GENERAL MEDICAL PROBLEM - General Chief Complaint: Diabetic Complaint Stated Complaint: BLOOD SUGAR VERY HIGH Time Seen by Provider: 10/06/19 01:03 - History of Present Illness INITIAL COMMENTS - FREE TEXT/NARRATIVE: HISTORY AND PHYSICAL: History of present illness: the patient is a 78-year-old male who follows with Dr. Whipple in the clinic and has an insulin pump for his diabetes and presents with frustration over inability to get his blood sugars under control. He said that for the last week or 10 days it has been read to 400 and he has spoken with Dr. Whipple about that and has met with the clinical informatics educator. They did change his basal rate and he has been over calculating for the carbs that he is eating and he feels that the numbers are still in the low 300s and here on his Accu-Chek it was 298. He has no systemic complaints of fever chills chest pain or shortness of breath no abdominal pain no vomiting and no urinary complaints.He tells nursing and me he is just very frustrated and does not understand why it is not getting under control. When I talk to him more he says this been going on longer than just the last 10 days and has been on and off over the last few months. His last hemoglobin A1c was in July and when he saw Dr. Whipple 11 days ago he did not have any blood work. Since meeting with the clinical informatics educator 11 days ago he has not connected with her again. Review of systems: As per history of present illness and below otherwise all systems reviewed and negative. Past medical history: As per history of present illness and as reviewed below otherwise noncontributory. Surgical history: As per history of present illness and as reviewed below otherwise noncontributory. Social history: No reported history of drug or alcohol abuse. Family history: As per history of present illness and as reviewed below otherwise noncontributory. Physical exam: general: Well-developed well-nourished man who is nontoxic and vital signs are noted by me HEENT: Atraumatic, normocephalic, pupils reactive, negative for conjunctival pallor or scleral icterus, mucous membranes moist, throat clear, neck supple, nontender, trachea midline. Lungs: Clear to auscultation, breath sounds equal bilaterally, chest nontender. Heart: S1S2, regularrate and rhythm no overt murmurs Abdomen: Soft, nondistended, nontender. Negative for masses or hepatosplenomegaly. NABS Pelvis: Stable nontender. Genitourinary: Deferred. Rectal: Deferred. Extremities: Atraumatic, negative for cords or calf pain. Neurovascular unremarkable. Neuro: Awake, alert, oriented. Cranial nerves II through XII unremarkable. Cerebellum unremarkable. Motor and sensory unremarkable throughout. Exam nonfocal. Diagnostics: Accu-Chek UA with reflex CBC CMP hemoglobin A1c Therapeutics: Impression: hyperglycemia,with history of same Definitive disposition and diagnosis as appropriate pending reevaluation and review of above. no pain Pain Score (Numeric/FACES): 0 - Related Data Allergies Allergy/AdvReac Type Severity Reaction Status Date / Time Latex, Natural Rubber Allergy Other Verified 05/04/19 06:34 cory Allergy Blisters Uncoded 05/04/19 06:34 Home Meds: Home Meds Bilberry Fruit Extract [Bilberry] 240 mg PO BID 10/31/14 [History] Insulin Lispro [HumaLOG] 0 injection SQ TIDMEALS MDD 60 units 10/31/14 [History] Cetirizine [ZyrTEC] 10 mg PO DAILY 12/16/18 [History] Past Medical History HEENT History: Reports: Cataract, Hard of Hearing, Macular Degeneration, Other ( See Below) Other HEENT History: wears glasses, has injections for Wet Macular Degeneration Cardiovascular History: Reports: High Cholesterol, SOB on Exertion Respiratory History: Reports: Other (See Below) Other Respiratory History: soon to be tested for sleep apnea- he "snores alot" Gastrointestinal History: Reports: Other (See Below) Other Gastrointestinal History: ocassional heartburn from spicy foods Genitourinary History: Reports: BPH Musculoskeletal History: Reports: Arthritis, Back Pain, Chronic, Fracture, Neck Pain, Chronic Other Musculoskeletal History: hx of a fx ankle as a child Neurological History: Reports: None Psychiatric History: Reports: None Endocrine/Metabolic History: Reports: IDDM, Other (See Below) Other Endocrine/Metabolic History: 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 Insulin Pump Model and Peer Financial Counselor: [employer] Type of Insulin Used in Pump: humalog Do You Have Enough Pump Supplies for Your Hospital Stay: Yes Who Manages Your Pump: Patient (Self) Hematologic History: Reports: None Immunologic History: Reports: None Oncologic (Cancer) History: Reports: Basal Cell Carcinoma Other Oncologic History: basal cell removed from the face and neck Dermatologic History: Reports: None - Infectious Disease History Infectious Disease History: Reports: Chicken Pox, Measles, Mumps Other Infectious Disease History: polio - Past Surgical History Head Surgeries/Procedures: Reports: None HEENT Surgical History: Reports: Cataract Surgery, Tonsillectomy GI Surgical History: Reports: Hernia, Inguinal Male Surgical History: Reports: None, Prostatectomy Dermatological Surgical History: Reports: Skin Biopsy Social & Family History - Family History Family Medical History: Noncontributory - Tobacco Use Smoking Status *Q: Never Smoker Second Hand Smoke Exposure: No - Caffeine Use Caffeine Use: Reports: Soda Caffeine Use Comment: 3-4 pops/day - Recreational Drug Use Recreational Drug Use: No ED ROS GENERAL - Review of Systems Review Of Systems: Comprehensive ROS is negative, except as noted in HPI. ED EXAM GENERAL NO PERIP PULSE - Physical Exam Exam: See Below (see dictation) Course - Vital Signs Last Recorded V/S: Last Vital Signs Temp 35.9 C 10/06/19 01:04 Pulse 67 10/06/19 01:04 Resp 18 10/06/19 01:04 BP 145/88 H 10/06/19 01:04 Pulse Ox 96 10/06/19 01:04 - Orders/Labs/Meds Orders: Active Orders 24 hr Category Date Time Status Blood Glucose Check, Bedside [RC] ONETIME Care 10/06/19 01:27 Active Labs: Laboratory Tests 10/06/19 10/06/19 10/06/19 Range/Units 01:13 01:13 01:13 WBC (4.0-11.0) K/uL RBC (4.50-5.90) M/uL Hgb (13.0-17.0) g/dL Hct (38.0-50.0) % MCV (80.0-98.0) fL MCH (27.0-32.0) pg MCHC (31.0-37.0) g/dL RDW Std Deviation (28.0-62.0) fl RDW Coeff of Isaac (11.0-15.0) % Plt Count (150-400) K/uL MPV (7.40-12.00) fL Neut % (Auto) (48.0-80.0) % Lymph % (Auto) (16.0-40.0) % [place] % (Auto) (0.0-15.0) % Eos % (Auto) (0.0-7.0) % Baso % (Auto) (0.0-1.5) % Neut # (Auto) (1.4-5.7) K/uL Lymph # (Auto) (0.6-2.4) K/uL [place] # (Auto) (0.0-0.8) K/uL Eos # (Auto) (0.0-0.7) K/uL Baso # (Auto) (0.0-0.1) K/uL Sodium 138 (136-148) mmol/L Potassium 4.0 (3.5-5.1) mmol/L Chloride 102 (98-107) mmol/L Carbon Dioxide 27.1 (21.0-32.0) mmol/L BUN 21 H (7.0-18.0) mg/dL Creatinine 1.3 (0.8-1.3) mg/dL Est Cr Clr Drug Dosing 49.91 mL/min Estimated GFR (MDRD) 53.7 ml/min Glucose 301 H (74-106) mg/dL POC Glucose 298 H (60-110) mg/dL Hemoglobin A1c 8.7 H (4.5-6.2) % Calcium 8.8 (8.5-10.1) mg/dL Total Bilirubin 0.6 (0.2-1.0) mg/dL AST 16 (15-37) IU/L ALT 24 (14-63) IU/L Alkaline Phosphatase 111 (46-116) U/L Total Protein 7.2 (6.4-8.2) g/dL Albumin 3.7 (3.4-5.0) g/dL Globulin 3.5 (2.6-4.0) g/dL Albumin/Globulin Ratio 1.1 (0.9-1.6) Urine Color Urine Appearance Urine pH (5.0-8.0) Ur Specific Moran (1.001-1.035) Urine Protein (NEGATIVE) mg/dL Urine Glucose (UA) (NEGATIVE) mg/dL Urine Ketones (NEGATIVE) mg/dL Urine Occult Blood (NEGATIVE) Urine Nitrite (NEGATIVE) Urine Bilirubin (NEGATIVE) Urine Urobilinogen (<2.0) EU/dL Ur Leukocyte Esterase (NEGATIVE) 11/19/19 11/19/19 Range/Units 01:18 01:18 WBC 5.91 (4.0-11.0) K/uL RBC 4.54 (4.50-5.90) M/uL Hgb 14.6 (13.0-17.0) g/dL Hct 42.0 (38.0-50.0) % MCV 92.5 (80.0-98.0) fL MCH 32.2 H (27.0-32.0) pg MCHC 34.8 (31.0-37.0) g/dL RDW Std Deviation 39.9 (28.0-62.0) fl RDW Coeff of Isaac 12 (11.0-15.0) % Plt Count 220 (150-400) K/uL MPV 9.90 (7.40-12.00) fL Neut % (Auto) 53.2 (48.0-80.0) % Lymph % (Auto) 32.7 (16.0-40.0) % [place] % (Auto) 11.8 (0.0-15.0) % Eos % (Auto) 2.0 (0.0-7.0) % Baso % (Auto) 0.3 (0.0-1.5) % Neut # (Auto) 3.1 (1.4-5.7) K/uL Lymph # (Auto) 1.9 (0.6-2.4) K/uL [place] # (Auto) 0.7 (0.0-0.8) K/uL Eos # (Auto) 0.1 (0.0-0.7) K/uL Baso # (Auto) 0.0 (0.0-0.1) K/uL Sodium (136-148) mmol/L Potassium (3.5-5.1) mmol/L Chloride (98-107) mmol/L Carbon Dioxide (21.0-32.0) mmol/L BUN (7.0-18.0) mg/dL Creatinine (0.8-1.3) mg/dL Est Cr Clr Drug Dosing mL/min Estimated GFR (MDRD) ml/min Glucose (74-106) mg/dL POC Glucose (60-110) mg/dL Hemoglobin A1c (4.5-6.2) % Calcium (8.5-10.1) mg/dL Total Bilirubin (0.2-1.0) mg/dL AST (15-37) IU/L ALT (14-63) IU/L Alkaline Phosphatase (46-116) U/L Total Protein (6.4-8.2) g/dL Albumin (3.4-5.0) g/dL Globulin (2.6-4.0) g/dL Albumin/Globulin Ratio (0.9-1.6) Urine Color YELLOW Urine Appearance CLEAR Urine pH 6.0 (5.0-8.0) Ur Specific [place] 1.015 (1.001-1.035) Urine Protein NEGATIVE (NEGATIVE) mg/dL Urine Glucose (UA) >=1000 (NEGATIVE) mg/dL Urine Ketones NEGATIVE (NEGATIVE) mg/dL Urine Occult Blood NEGATIVE (NEGATIVE) Urine Nitrite NEGATIVE (NEGATIVE) Urine Bilirubin NEGATIVE (NEGATIVE) Urine Urobilinogen 0.2 (<2.0) EU/dL Ur Leukocyte Esterase NEGATIVE (NEGATIVE) Departure - Departure Time of Disposition: 01:47 Disposition: Home, Self-Care 01 Condition: Good Clinical Impression: Hyperglycemia - Discharge Information Referrals: Kermit Whipple MD [Primary Care Provider] - Forms: ED Department Discharge Additional Instructions: The following information is given to patients seen in the emergency department who are being discharged to home. This information is to outline your options for follow-up care. We provide all patients seen in our emergency department with a follow-up referral. The need for follow-up, as well as the timing and circumstances, are variable depending upon the specifics of your emergency department visit. If you don't have a primary care physician on staff, we will provide you with a referral. We always advise you to contact your personal physician following an emergency department visit to inform them of the circumstance of the visit and for follow-up with them and/or the need for any referrals to a consulting specialist. The emergency department will also refer you to a specialist when appropriate. This referral assures that you have the opportunity for followup care with a specialist. All of these measure are taken in an effort to provide you with optimal care, which includes your followup. Under all circumstances we always encourage you to contact your private physician who remains a resource for coordinating your care. When calling for followup care, please make the office aware that this follow-up is from your recent emergency room visit. If for any reason you are refused follow-up, please contact the [facility] emergency department at and ask to speak to the emergency department charge nurse. [facility] Primary care- Internal Medicine and Family [address] [address] Please connect with the clinical informatics educator as we discussed to discuss your insulin and the dosing as well as your diet. Please also connect and schedule follow-up with Dr. Whipple so that you can express her concerns about your diabetes and your hyperglycemia. Return to ER as needed and as discussed - My Orders Last 24 Hours: My Active Orders 10/06/19 01:27 Blood Glucose Check, Bedside [RC] ONETIME - Assessment/Plan Last 24 Hours: My Active Orders 10/06/19 01:27 Blood Glucose Check, Bedside [RC] ONETIME
[2019-10-06 01:40] LABS: HEMOGLOBIN A1C 8.7 % (4.5-6.2)
[2019-10-06 01:42] LABS: CARBON DIOXIDE,CO2 27.1 mmol/L (21.0-32.0)
[2019-10-06 02:41] VITALS: BP 118/65; PULSE 61
== END 2019-10-06 02:07 | disposition home or self-care (01) ==
LOC: MW.ED 00:56
DX: E13.65 Other specified diabetes mellitus with hyperglycemia (principal); Z91.040 Latex allergy status; Z91.09 Other allergy status, other than to drugs and biological substances; Z79.4 Long term (current) use of insulin
CPT/HCPCS: 36415; 80053; 81003; 82962; 83036; 85025; 99284

== ENCOUNTER 2021-07-28 12:23 | Emergency (ER) | payer MEDICARE ==
[2021-07-28] MEDS ORDERED: Sodium Chloride 0.9% 2.5 ML Syringe FLUSH PRN (12:58)
[2021-07-28] MEDS ORDERED: Sodium Chloride 0.9% 10 ML Syringe FLUSH PRN (12:58)
[2021-07-28] MEDS ORDERED: Sodium Chloride 0.9% 500 ML IV ONE (12:59)
[2021-07-28] MEDS ORDERED: Ondansetron 4 MG/2 ML SDV IVPUSH ONE (12:59)
--- NOTE | 2021-07-28 13:20 | PCM.EKG ---
#1 Interpretation EKG Interpretation Comments: EKG done 07/28/2021 at 1237 hrs. rhythm sinus rhythm, rate 55, NV interval 164, QT duration 427, axis -24, QRS borderline left axis deviation, ST and T normal. Impression no acute injury
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
[2021-07-28 13:31] LABS: BLOOD UREA NITROGEN,BUN 21 mg/dL (7.0-18.0); CARBON DIOXIDE,CO2 26.7 mmol/L (21.0-32.0); CHLORIDE,CL 100 mmol/L (98-107); GLUCOSE RANDOM 340 mg/dL (74-106); POTASSIUM,K 4.5 mmol/L (3.5-5.1); SODIUM,NA 134 mmol/L (136-148)
--- NOTE | 2021-07-28 13:57 | CR ---
Indication: Weakness Comparison: Two-view chest December 17, 2018 Technique: Single AP view chest Findings: There is hyperinflation and chronic interstitial change. There is a metallic fragment projecting over the left upper lobe. There is no focal consolidation, effusion, or pneumothorax. The cardiomediastinal silhouette is within normal limits. The bony thorax is grossly intact. Impression: Hyperinflation and chronic interstitial change without dense consolidation. Dictated by Gregory Mueller MD @ 07/28/2021 1:55:42 PM (Electronically Signed)
--- NOTE | 2021-07-28 14:05 | CT ---
Indication: Sudden onset of weakness Technique: Volumetric multidetector CT images of the head were obtained without the administration of low osmolar intravenous contrast. Comparison: CT head August 31, 2018 Findings: There is no intra-axial or extra-axial fluid collection. There is no mass effect or midline shift. There is age-related cortical atrophy with mild sulcal widening and ex vacuo dilatation of the lateral ventricles. There are chronic small vessel disease changes in the subcortical and periventricular white matter without lost guidry-white differentiation. The orbits and their contents are grossly within normal limits. The bony calvarium is grossly intact. The paranasal sinuses are clear. The mastoid air cells are well aerated. Impression: 1. Age-related changes of the brain without acute intracranial abnormality. Please note that all CT scans at this facility use dose modulation, iterative reconstruction, and/or weight-based dosing when appropriate to reduce radiation dose to as low as reasonably achievable. Dictated by Gregory Mueller MD @ 07/28/2021 2:03:16 PM (Electronically Signed)
[2021-07-28 15:52] VITALS: BP 132/74; PULSE 54
== END 2021-07-28 15:51 | disposition home or self-care (01) ==
LOC: MW.ED 12:23
DX: G45.9 Transient cerebral ischemic attack, unspecified (principal); E78.00 Pure hypercholesterolemia, unspecified; E10.9 Type 1 diabetes mellitus without complications; Z79.899 Other long term (current) drug therapy; Z91.040 Latex allergy status
CPT/HCPCS: 36415; 70450; 71045; 80053; 81003; 82947; 84484; 85025; 85610; 93005; 96374; 99285; J2405; J7030

== ENCOUNTER 2022-11-05 11:17 | Emergency (ER) | payer MEDICARE ==
[2022-11-05 14:48] VITALS: BP 128/66; PULSE 58
== END 2022-11-05 14:41 | disposition home or self-care (01) ==
LOC: MW.ED 11:17
DX: S42.032A Displaced fracture of lateral end of left clavicle, initial encounter for closed fracture (principal); S42.92XA Fracture of left shoulder girdle, part unspecified, initial encounter for closed fracture; E13.9 Other specified diabetes mellitus without complications; Y93.29 Activity, other involving ice and snow
CPT/HCPCS: 73030-26-LT; 73030-LT; 99283

== ENCOUNTER 2023-11-02 14:52 | Emergency (ER) | payer MEDICARE ==
[2023-11-02] MEDS ORDERED: Lidocaine 4% 1 each Patch TOP STA (16:34)
[2023-11-02 17:00] VITALS: BP 120/67; PULSE 67
== END 2023-11-02 17:02 | disposition home or self-care (01) ==
LOC: MW.ED 14:52
DX: S83.92XA Sprain of unspecified site of left knee, initial encounter (principal); E78.00 Pure hypercholesterolemia, unspecified; M19.90 Unspecified osteoarthritis, unspecified site; Z79.4 Long term (current) use of insulin; Z79.82 Long term (current) use of aspirin; Z79.899 Other long term (current) drug therapy; X50.9XXA Other and unspecified overexertion or strenuous movements or postures, initial encounter
CPT/HCPCS: 73562; 99283; A9270

== ENCOUNTER 2024-02-12 17:44 | Emergency (ER) | payer MEDICARE ==
[2024-02-12 18:10] VITALS: BP 111/53; PULSE 60
== END 2024-02-12 21:00 | disposition left against medical advice (07) ==
LOC: MW.ED 17:44
DX: M17.12 Unilateral primary osteoarthritis, left knee (principal); M25.572 Pain in left ankle and joints of left foot; M25.552 Pain in left hip; E10.9 Type 1 diabetes mellitus without complications; Z79.1 Long term (current) use of non-steroidal anti-inflammatories (NSAID); I10 Essential (primary) hypertension; Z79.899 Other long term (current) drug therapy; Z79.82 Long term (current) use of aspirin; E78.00 Pure hypercholesterolemia, unspecified; Z75.8 Other problems related to medical facilities and other health care
CPT/HCPCS: 73502-26-LT; 73502-LT; 73562-26-LT; 73562-LT; 73610-26-LT; 73610-LT; 99283